=== PATIENT | male | born 1970 | race Caucasian/White ===

== ENCOUNTER 2021-06-18 20:10 | Emergency (ER) | payer OTHER ==
[~2021-06-18] VITALS: Ht 200.7 cm; Wt 111.1 kg
[~2021-06-18 20:10] MED LIST: MULTIVITAMINS; NORCO 5-325 TA1 EACH PO
[2021-06-18] MEDS ORDERED: LUNESTA3 MG PO (20:18)
[2021-06-18] MEDS ORDERED: CYMBALTA20 MG PO (20:18)
[2021-06-18] MEDS ORDERED: VITAMIN C100 MG PO (20:19)
[2021-06-18] MEDS ORDERED: VITAMIN D3250 MC1 PO (20:19)
[2021-06-18 20:42] LABS: ABSOLUTE NEUTROPHILS 4.5 thou/uL (1.4-8.2); BASOPHILS 0.5 % (0.0-2.0); EOSINOPHILS 3.1 % (0.0-3.0); HEMATOCRIT 40.2 % (42.0-52.0); HEMOGLOBIN 13.8 gm/dL (14.0-18.0); LYMPHOCYTES 36.4 % (24.0-44.0); MCH 29.4 pg (26.0-34.0); MCHC 34.4 g/dL (28.0-37.0); MCV 85.5 fL (80.0-100.0); MONOCYTES 8.4 % (1.0-8.0); PLATELET COUNT 217 thou/uL (150-400); POLYS 51.6 % (36.0-66.0); RDW 13.7 % (10.5-14.5); WBC 8.6 thou/uL (4.0-11.0)
[2021-06-18 20:46] LABS: ANION GAP 10 mmol/L (7-16); BUN 28 mg/dL (7-18); CALCIUM 8.3 mg/dL (8.5-10.1); CHLORIDE 102 mmol/L (98-107); CO2 26 mmol/L (21-32); CREATININE 1.8 mg/dL (0.7-1.3); GLUCOSE 131 mg/dL (74-106); POTASSIUM 3.5 mmol/L (3.5-5.1); SODIUM 138 mmol/L (136-145)
[2021-06-18 20:56] LABS: ALBUMIN 3.7 g/dL (3.4-5.0); SGOT 28 U/L (15-37); SGPT 28 U/L (16-63); TOTAL BILIRUBIN 0.3 mg/dL (0.2-1.0); TOTAL PROTEIN 7.2 g/dL (6.4-8.2); TROPONIN-I <0.06 ng/mL (<0.06)
[2021-06-18 23:23] VITALS: BP 112/42
--- NOTE | 2021-06-19 07:19 | EKG ---
[address] [place] [address] ELECTROCARDIOGRAM REPORT Name: MISSY OLVERA Room #: [facility]CENTSPrimitivo#: [id number] Admission: 06/18/21 Attend Phys: Discharge: 06/18/21 Date of : 70 Report #: [id number] [facility] ED Test Date: 2021-06-18 Test Time: 20:09:17 Pat Name: MISSY OLVERA Department: Room: Gender: Cell Technician: NEIL : 1970 Requested By: Jarad Silva Order Number: [id number] MD: Luis E Thakkar Measurements Intervals [place] Rate: 52 P: 268 UT: 109 QRS: 20 QRSD: 102 T: 62 QT: 425 QTc: 396 Interpretive Statements Ectopic atrial rhythm Short UT interval No previous ECG available for comparison Electronically Signed On 06-19-2021 7:19:19 CDT by Luis E Thakkar [email or web address] <ELECTRONICALLY SIGNED> By: Luis E Thakkar MD, [facility] 06/19/21 0719 08 08 Luis E Thakkar MD, FACC /EPI
== END 2021-06-18 23:29 | disposition short-term general hospital (02) ==
LOC: ER 20:10
PROVIDERS: Emergency Medicine
DX: R07.89 Other chest pain (principal); Z20.822 Contact with and (suspected) exposure to COVID-19; Z79.899 Other long term (current) drug therapy; Z88.8 Allergy status to other drugs, medicaments and biological substances